=== PATIENT | male | born 1975 | race Caucasian/White ===

== ENCOUNTER 2016-07-23 21:03 | Emergency (ER) | payer OTHER ==
[~2016-07-23] VITALS: Ht 170.2 cm; Wt 115.5 kg
[2016-07-23 21:10] VITALS: BP 138/82; PULSE 84; RESP 13; O2SAT 98
--- NOTE | 2016-07-23 22:06 | ED.REPORT ---
HPI-Dyspnea / Wheezing Date of Service Jul 23, 2016 ED Provider: Alexx Sauceda DO The patient is a 40 year old male w/ a hx of DM who presents to the ED via EMS due to SOB onset yesterday. Pt describes he was eating dinner on evening and began to have difficulty breathing and blurred vision. He denies any other symptoms. Nursing Notes Stated Complaint: TROUBLE BREATHING Chief Complaint: General Complaint Nursing Notes Reviewed: Yes Allergies: Coded Allergies: No Known Allergies (Unverified , 07/23/16) General Time Seen by MD: 22:06 Chief Complaint Shortness of breath Hx Obtained From: Patient Arrived By: Ambulance Sudden in Onset?: Yes Onset Occurred: Yesterday Symptom Duration: Since onset Recent Healthcare: No recent doctor visit, No recent hospitalization Similar Sx Previous: No Past Medical History Past Medical History Reports: Diabetes mellitus Past Surgical History denies Social History Other Social History: Local resident Ambulatory Status Independent Review of Systems Respiratory: Reports: Shortness of breath Cardiovascular: Reports: Dyspnea on exertion Complete sys rev & neg: except as marked. Physical Exam Initial Vital Signs Vital Signs (First) Date Time Temp Pulse Resp B/P Pulse Ox O2 Delivery O2 Flow Rate FiO2 07/23/16 21:10 36.4 84 13 138/82 98 Room Air Initial VS: Reviewed Head / Eyes: Atraumatic, Normocephalic, PERRL ENT: Mucous membranes moist Abdomen / GI: Soft, Non-tender, No guarding Extremities: Vascular intact, Neuro intact, No swelling Skin: Warm, Dry General/Constitutional: Awake, Alert, Cooperative Neck: Atraumatic, Supple Wheezing / Retractions: Positive: Wheezing expiratory Cardiovascular: Heart rate NL, Regular rhythm, Heart sounds NL Interpretation & Diagnostics Lab Results Interpretation Result Diagram: 07/24/16 0110 07/24/16 0110 Test 07/24/16 01:10 07/24/16 02:30 White Blood Count 5.8th/mm3 (3.8-10.1) Red Blood Count 5.18mil/mm3 (4.40-5.80) Hemoglobin 15.3g/dL (13.8-17.2) Hematocrit 44.4% (41.0-50.0) Mean Corpuscular Volume 85.7fL (81-100) Mean Corpuscular Hemoglobin 29.5pg (27.0-35.0) Mean Corpuscular Hemoglobin Concent 34.5% (32.0-37.0) Red Cell Distribution Width 12.8% (12.3-15.4) Platelet Count 173bil/L (150-400) Neutrophils (%) (Auto) 56.3% (40-74) Lymphocytes (%) (Auto) 33.6% (14-46) Monocytes (%) (Auto) 8.1% (4-12) Eosinophils (%) (Auto) 1.5% (0-5) Basophils (%) (Auto) 0.2% (0-3) D-Dimer < 0.50mg/L FEU (<0.50) Sodium Level 135mEq/L (134-144) Potassium Level 3.4mEq/L (3.5-5.2) Chloride Level 97mEq/L (97-108) Carbon Dioxide Level 22mmol/L (18-29) Blood Urea Nitrogen 11mg/dL (6-24) Creatinine 0.56mg/dL (0.76-1.27) Estimat Glomerular Filtration Rate 171mL/min (>59) Glucose Level 324mg/dL (60-99) Calcium Level 9.4mg/dL (8.5-10.1) Total Bilirubin 0.7mg/dL (0.0-1.2) Aspartate Amino Transf (AST/SGOT) 20U/L (0-50) Alanine Aminotransferase (ALT/SGPT) 19U/L (0-44) Alkaline Phosphatase 64U/L (25-150) Pro-B-Type Natriuretic Peptide 23.65pg/mL (0-86) Total Protein 6.7g/dL (6.4-8.4) Albumin 4.3g/dL (3.4-5.0) Hold Silverman Top Tube Received (Received) Troponin T 0.010ug/L (0.0-0.011) X-Ray Chest Interpretation Chest Xray Interpretation: IMPRESSION: no acute findings View: Portable Interpretation / Wet Read by: Wet read ED physician Re-Eval/Medical Decision Med Decision/Clinical Course 40-year-old male presents with some nonspecific dyspnea. He also feels that he is getting dehydrated. His blood sugars been trending up. Otherwise examination was very benign. EKG was reassuring. Cervical troponins were negative. Pulmonary Y rule out based on d-dimer incredibly low risk and pulmonary emboli rule out criteria. HI was ruled out. Pneumonia was ruled out. He did get better with a bronchodilator and fluids. As such I will have them use albuterol 2 puffs every 6 hours as needed. Recommend he sees his doctor next week for pulmonary function testing. He is to manage his diabetic issues as prior. Return if any problems or any worsening symptoms Re-Evaluation/Progress : Time of Eval: 00:55 Patient Status: Condition improved, Moderate relief Re-Evaluation/Progress Note: Pt rechecked. Following breathing treatment, symptoms are improved. Plan for discharge. F/U and RTER warnings given. Pt understands and agrees with plan. Counseled Regarding: Diagnosis, Lab results, Need for follow-up, When/why to return to ED Discharge & Departure Impression: Primary Impression: Dyspnea Dyspnea type: shortness of breath Qualified Code: R06.02 - Shortness of breath Disposition: Home Discharge Condition All VS Reviewed: Yes Condition: Stable Patient Instructions: Reactive Airways Disease (ED) Additional Instructions: Your heart enzymes were normal. The EKG did not show signs of heart attack. Your chest x-ray is normal. Your blood sugar is elevated and you need to follow your diabetic diet and insulin regimen closely. Albuterol 2 puffs every 6 hours as needed for cough and shortness of breath. Call your doctor on Tuesday for follow-up. Return for any problems or any worsening symptoms. Referrals: Vu Lara MD (PCP) Scribe Attestation Portion of this note were transcribed by Georgia Carvajal. I, Dr. Sauceda, personally performed the history, physical exam, and medical decision-making: I reviewed and confirmed the accuracy for the information in the transcribed note. Signed by: jaxson Dasilva, 07/23/16 0300 copies to: Vu Lara MD, Todd P DO Jul 23, 2016 22:06 Georgia Carvajal Jul 23, 2016 23:35
[2016-07-23 23:00] VITALS: BP 122/67; PULSE 89; RESP 12; O2SAT 98
[2016-07-23] MEDS ORDERED: Albuterol-Ipratropium 3 mL Inhalation Solution NEB ONE (23:35)
[2016-07-23] MEDS ORDERED: 0.9% Sodium Chloride 1,000 ML IV ONE (23:35)
[2016-07-24 00:48] VITALS: PULSE 85; RESP 16; O2SAT 97
[2016-07-24 01:23] LABS: BASOPHILS % (AUTO) 0.2 % (0-3); EOSINOPHILS % (AUTO) 1.5 % (0-5); MONOCYTES % (AUTO) 8.1 % (4-12); Mean Corpuscular Hemoglobin 29.5 pg (27.0-35.0); Mean Corpuscular Volume 85.7 fL (81-100); NEUTROPHILS % (AUTO) 56.3 % (40-74); Platelet Count 173 bil/L (150-400)
[2016-07-24 01:30] VITALS: BP 133/86; PULSE 83; RESP 15; O2SAT 96
[2016-07-24 01:48] LABS: TROPONIN T 0.01 ug/L (0.0-0.011)
[2016-07-24] MEDS ORDERED: 0.9% Sodium Chloride 1,000 ML IV ONE (02:25)
[2016-07-24 03:22] VITALS: BP 116/68; PULSE 81; RESP 15; O2SAT 96
--- NOTE | 2016-07-24 06:49 | DRSVH ---
PROCEDURE: X-RAY CHEST, TWO VIEWS ([id number]) INDICATIONS: cough TECHNIQUE: 2 views of the chest were acquired. COMPARISON: None. FINDINGS: Surgical changes and devices: None. Lungs and pleura: No pleural effusions or pneumothorax. Lungs are clear. Mediastinum: Mediastinal contours are normal. Heart size is normal. Bones and chest wall: No suspicious bony abnormalities. Soft tissues appear unremarkable. IMPRESSION: No acute pulmonary process. Dictated by: Marla Lan M.D. on 07/24/2016 at 6:48 Approved by: Marla Lan M.D. on 07/24/2016 at 6:48
== END 2016-07-24 03:23 | disposition home or self-care (01) ==
LOC: SED 21:03
DX: R06.02 Shortness of breath (principal); E11.9 Type 2 diabetes mellitus without complications
CPT/HCPCS: 36415; 71020; 80053; 83880; 84484; 85025; 85378; 94664; 96360; 96361; 99285; J7030; J7620